=== PATIENT | female | born 1965 | race Caucasian/White ===

== ENCOUNTER 2023-01-18 18:58 | Emergency (ER) | payer OTHER ==
[2023-01-18] MEDS ORDERED: KETOROLAC TROMETHAMINE 30 MG/1 ML VIAL IVPUSH ONE (19:22)
[2023-01-18] MEDS ORDERED: KETOROLAC TROMETHAMINE 30 MG/1 ML VIAL ONE (19:25)
[2023-01-18 19:27] VITALS: BP 176/82; PULSE 71; RESP 16; TEMP 98.6; BMI 32.1
[2023-01-18 19:41] LABS: EPITHELIAL CELLS FEW /hpf
[2023-01-18 19:43] LABS: HEMATOCRIT 41.8 % (32.4-45.2); HEMOGLOBIN 14.5 G/dL (10.7-15.3); MCH 28.6 pg (25.7-33.7); MCHC 34.7 g/dl (32.0-36.0); MEAN CELL VOLUME 82.4 fl (80-96); MEAN PLT VOLUME 10.5 fl (7.5-11.1); PLATELET COUNT 231.7 10^3/uL (134-434); RBC 5.07 10^6/uL (3.60-5.2); RDW 14.7 % (11.6-15.6); WHITE BLOOD COUNT 9.8 10^3/uL (4.0-10.8)
[2023-01-18 19:55] LABS: ALBUMIN 4.3 g/dl (3.4-5.0); BILIRUBIN,TOTAL 0.6 mg/dl (0.2-1); CALCIUM 9.5 mg/dl (8.5-10); CREATININE 0.7 mg/dl (0.55-1.3); TOT PROT 7.1 g/dl (6.4-8.2)
[2023-01-18] MEDS ORDERED: CYCLOBENZAPRINE HCL 10 MG TABLET (FP) PO ONE (21:03)
[2023-01-18] MEDS ORDERED: CYCLOBENZAPRINE HCL 5 MG TABLET ONE (21:07)
== END 2023-01-18 21:14 | disposition home or self-care (01) ==
LOC: FER 18:58
PROC: 3E033GC Introduction of Other Therapeutic Substance into Peripheral Vein, Percutaneous Approach (ICD-10-PCS; principal; 2023-01-18)
DX: M54.50 Low back pain, unspecified (principal)
CPT/HCPCS: 36415; 74176-TC; 80053; 81003; 81015; 85027; 87086; 99285-25

== ENCOUNTER 2024-03-24 09:12 | Emergency (ER) | payer BC, OTHER ==
[2024-03-24 09:26] VITALS: BP 154/83; PULSE 66; RESP 18; TEMP 97.8; BMI 32.1
[2024-03-24 11:07] LABS: HEMATOCRIT 45.6 % (32.4-45.2); HEMOGLOBIN 15.1 G/dL (10.7-15.3); MCHC 33.1 g/dl (32.0-36.0); MEAN CELL VOLUME 81.7 fl (80-96); MEAN PLT VOLUME 10.9 fl (7.5-11.1); PLATELET COUNT 214.7 10^3/uL (134-434); RBC 5.58 10^6/uL (3.60-5.2); WHITE BLOOD COUNT 8.7 10^3/uL (4.0-10.8)
[2024-03-24 11:13] LABS: ANION GAP 9 mmol/L (4-13); CHLORIDE 102 mmol/L (98-107); CO2 29 mmol/L (21-32); CREATININE 0.7 mg/dl (0.6-1.3); GLUCOSE,RANDOM 102 mg/dl (74-106); POTASSIUM 3.8 mmol/L (3.5-5.1); SODIUM 140 mmol/L (136-145)
[2024-03-24 12:13] LABS: PLATELET ESTIMATE ADEQUATE
== END 2024-03-24 12:25 | disposition home or self-care (01) ==
LOC: FER 09:12
DX: R00.2 Palpitations (principal); R06.02 Shortness of breath; F41.9 Anxiety disorder, unspecified; R20.2 Paresthesia of skin
CPT/HCPCS: 36415; 80048; 84484; 85027; 93005; 99284-25